=== PATIENT | male | born 1955 ===

== ENCOUNTER 2024-12-05 19:48 | Inpatient (IN) | payer MEDICARE, BC ==
[2024-12-05 20:15] VITALS: BMI 22.1
[2024-12-06] MEDS: Acetaminophen 325 MG TAB PO PRN (07:48)
[2024-12-06] MEDS: Ezetimibe 10 MG TAB PO SCH (09:05)
[2024-12-06] MEDS: Lisinopril 5 MG TAB PO SCH (09:05)
[2024-12-06] MEDS: Allopurinol 100 MG TAB PO SCH (09:06)
[2024-12-06 14:23] VITALS: BMI 22.1
[2024-12-07 09:51] LABS: Anion Gap 20 mmol/L (10-20); BUN (Urea Nitrogen) 15 mg/dL (8.4-25.7); Calc. Creatinine Clearance 81 mL/min (70-130); Calcium 8.3 mg/dL (7.8-10.44); Carbon Dioxide 15 mmol/L (23-31); Chloride 102 mmol/L (98-107); Glucose 74 mg/dL (80-115); Potassium 4.7 mmol/L (3.5-5.1); Sodium 132 mmol/L (136-145)
[2024-12-07 09:54] LABS: Hematocrit 27.2 % (42.0-52.0); Hemoglobin 8.4 g/dL (14.0-18.0); Mean Corpuscular Hemoglobin 29.2 pg (27.0-31.0); Mean Corpuscular Volume 94.6 fl (78.0-98.0); Platelet Count 465 10x3/uL (130-400); Red Blood Cell (RBC) Count 2.88 mill/uL (4.70-6.10); White Blood Cell (WBC) Count 15.8 10x3/uL (4.8-10.8)
[2024-12-07 10:15] LABS: Critical Call w/ Read Back 720487; MDiff Complete? YES; Manual Diff?? YES
[2024-12-07 10:16] LABS: Anisocytosis SLIGHT = 6-15 cells (100X) (0-5/hpf)
[2024-12-07 10:17] LABS: Platelet Adequacy Comment Appears Increased
[2024-12-07] MEDS: Metoprolol Succinate XL 25 MG ER.TAB PO SCH (22:44)
[2024-12-08] MEDS: Metoprolol Succinate XL 25 MG ER.TAB PO SCH (20:15)
[2024-12-09 09:15] LABS: #Basophils 0.2 thou/uL (0.0-0.2); #Eosinophils 0.1 thou/uL (0.0-0.7); #Lymphocytes 0.9 thou/uL (1.20-3.40); #Monocytes 0.9 thou/uL (0.11-0.59); #Neutrophils 7.5 thou/uL (1.40-6.50); %Basophils 1.6 % (0.0-1.0); %Eosinophils 0.8 % (0.0-10.0); %Lymphocytes 9.3 % (21.0-51.0); %Monocytes 9.0 % (0.0-10.0); %Neutrophils 79.3 % (42.0-75.0); Anisocytosis SLIGHT = 6-15 cells (100X) (0-5/hpf); Hematocrit 23.1 % (42.0-52.0); Hemoglobin 7.2 g/dL (14.0-18.0); MDiff Complete? YES; Mean Corpuscular Hemoglobin 29.3 pg (27.0-31.0); Mean Corpuscular Volume 93.2 fl (78.0-98.0); Platelet Adequacy Comment Appears Adequate; Platelet Count 385 10x3/uL (130-400); Red Blood Cell (RBC) Count 2.48 mill/uL (4.70-6.10); White Blood Cell (WBC) Count 9.4 10x3/uL (4.8-10.8)
[2024-12-10 06:40] LABS: Anion Gap 10 mmol/L (10-20); BUN (Urea Nitrogen) 8 mg/dL (8.4-25.7); Calc. Creatinine Clearance 151 mL/min (70-130); Calcium 8.0 mg/dL (7.8-10.44); Carbon Dioxide 22 mmol/L (23-31); Chloride 107 mmol/L (98-107); Glucose 92 mg/dL (80-115); Potassium 3.7 mmol/L (3.5-5.1); Sodium 135 mmol/L (136-145)
[2024-12-10] MEDS: Metoprolol Succinate XL 25 MG ER.TAB PO SCH (21:04)
[2024-12-11] MEDS ORDERED: [UNRECOGNIZED DRUG - OTHER] EA EYE PRN (14:20)
[2024-12-11] MEDS ORDERED: BAUSCH EA EYE PRN (14:20)
[2024-12-11] MEDS: Ipratropium Bromide 2.5 ml Neb NEB PRN (14:29)
[2024-12-12 07:22] VITALS: BP 105/71; TEMP 97.8
[2024-12-12] MEDS ORDERED: Metoprolol Succinate XL 25 MG ER.TAB PO SCH (21:00)
== END 2024-12-12 16:20 | disposition home or self-care (01) | DRG 945 ==
LOC: MADMS 19:48
PROVIDERS: ADMIT Family Medicine; ATTEND Family Medicine
PROC: F07Z9ZZ Gait Training/Functional Ambulation Treatment (ICD-10-PCS; principal; 2024-12-05)
DX: R53.81 Other malaise (principal); A41.52 Sepsis due to Pseudomonas; D61.810 Antineoplastic chemotherapy induced pancytopenia; J15.1 Pneumonia due to Pseudomonas; C78.00 Secondary malignant neoplasm of unspecified lung; C79.51 Secondary malignant neoplasm of bone; I47.19 Other supraventricular tachycardia; C61 Malignant neoplasm of prostate; D70.9 Neutropenia, unspecified; J44.9 Chronic obstructive pulmonary disease, unspecified; I10 Essential (primary) hypertension; E78.5 Hyperlipidemia, unspecified; D63.8 Anemia in other chronic diseases classified elsewhere; F10.10 Alcohol abuse, uncomplicated; Z98.890 Other specified postprocedural states; Z79.899 Other long term (current) drug therapy; Z79.891 Long term (current) use of opiate analgesic; Z92.21 Personal history of antineoplastic chemotherapy; Z88.8 Allergy status to other drugs, medicaments and biological substances
CPT/HCPCS: 36415; 71046; 80048; 85025; 94640; J7644

== ENCOUNTER 2024-12-14 20:11 | Inpatient (IN) | payer MEDICARE, BC ==
[2024-12-14] MEDS ORDERED: Ipratropium Bromide 2.5 ml Neb NEB PRN (21:38)
[2024-12-14 23:17] VITALS: BMI 22.4
[2024-12-15] MEDS: Acetaminophen 325 MG TAB PO PRN (05:36)
[2024-12-15] MEDS: Magnesium Oxide 400 MG TAB PO SCH (08:23)
[2024-12-15] MEDS: CO Q-10 CAPSULE 100 MG PO SCH (08:23)
[2024-12-15] MEDS: Ezetimibe 10 MG TAB PO SCH (08:28)
[2024-12-15] MEDS: Allopurinol 100 MG TAB PO SCH (08:28)
[2024-12-15] MEDS: Cholecalciferol 1,000 UNITS (25 MCG) TAB PO SCH (08:28)
[2024-12-15] MEDS: PHOS-NAK 1 PKT PACK PO SCH (08:32)
[2024-12-15] MEDS: Calcium Carbonate 600 MG + Vit D TAB PO SCH (08:32)
[2024-12-17] MEDS: Lantiseptic Ointment 130 GM JAR TOP PRN (13:51)
[2024-12-17] MEDS: Lantiseptic Ointment 130 GM JAR TOP SCH (20:17)
[2024-12-19 05:41] LABS: ALT (SGPT) 10 U/L (Less than 45); AST (SGOT) 18 U/L (11-34); Albumin 2.2 g/dL (3.1-4.5); Alkaline Phosphatase 140 U/L (40-110); Anion Gap 11 mmol/L (10-20); BUN (Urea Nitrogen) 5 mg/dL (8.4-25.7); Bilirubin, Total 0.5 mg/dL (0.3-1.2); Calc. Creatinine Clearance 144 mL/min (70-130); Calcium 7.2 mg/dL (7.8-10.44); Carbon Dioxide 22 mmol/L (23-31); Chloride 110 mmol/L (98-107); Globulin 2.7 g/dL (2.4-3.5); Glucose 77 mg/dL (80-115); Magnesium 1.6 mg/dL (1.6-2.6); Potassium 4.2 mmol/L (3.5-5.1); Sodium 139 mmol/L (136-145)
[2024-12-19] MEDS: Pantoprazole 40 MG DR.TAB PO SCH (09:35)
[2024-12-20] MEDS: Lidocaine 4% Topical Sol 50 ML BOT TOP SCH (10:30)
[2024-12-21 12:50] VITALS: BMI 22.1
[2024-12-22 07:09] VITALS: BP 122/71; TEMP 98.7
== END 2024-12-22 13:00 | disposition home or self-care (01) | DRG 945 ==
LOC: MADMS 20:11
PROVIDERS: ADMIT Family Medicine; ATTEND Family Medicine
PROC: F07Z9ZZ Gait Training/Functional Ambulation Treatment (ICD-10-PCS; principal; 2024-12-14)
DX: R53.81 Other malaise (principal); A41.52 Sepsis due to Pseudomonas; C78.01 Secondary malignant neoplasm of right lung; C79.51 Secondary malignant neoplasm of bone; R26.89 Other abnormalities of gait and mobility; J44.9 Chronic obstructive pulmonary disease, unspecified; F10.10 Alcohol abuse, uncomplicated; D63.0 Anemia in neoplastic disease; E03.9 Hypothyroidism, unspecified; E78.5 Hyperlipidemia, unspecified; Z87.39 Personal history of other diseases of the musculoskeletal system and connective tissue; C61 Malignant neoplasm of prostate; Z79.899 Other long term (current) drug therapy
CPT/HCPCS: 36415; 80053; 83735; 84100